=== PATIENT | female | born 1940 ===

== ENCOUNTER 2020-03-23 14:07 | Emergency (ER) | payer MEDICARE, MEDICAID ==
[2020-03-23] MEDS ORDERED: Sodium Chloride 0.9% 10 ML Syringe FLUSH PRN (14:08)
--- NOTE | 2020-03-23 14:38 | CR ---
PROCEDURE INFORMATION: Exam: XR Chest, 1 View Exam date and time: 03/23/2020 2:27 PM Age: 79 years old Clinical indication: Chest pain; Type not specified TECHNIQUE: Imaging protocol: XR of the chest Views: 1 view. COMPARISON: No relevant prior studies available. FINDINGS: Lungs: Horizontal the linear density in the lingular region likely subsegmental atelectasis. The lungs are otherwise clear. Pleural space: Normal. Heart/Mediastinum: Normal heart and cardiomediastinal silhouette. Vasculature: Normal pulmonary vessel caliber. Normal aorta. Bones/joints: The bones are intact. IMPRESSION: No acute disease or suspicious finding.
[2020-03-23 14:48] LABS: ANION GAP 11.6 mEq/L (7-13); CHLORIDE,CL 103 mmol/L (98-107); SODIUM,NA 139 mmol/L (136-145)
--- NOTE | 2020-03-23 15:38 | EDM.PDOC ---
ED HPI GENERAL MEDICAL PROBLEM - General Chief Complaint: Chest Pain Stated Complaint: INCOMING Time Seen by Provider: 03/23/20 14:15 Source of Information: Reports: Patient, EMS, RN, RN Notes Reviewed History Limitations: Reports: No Limitations - History of Present Illness INITIAL COMMENTS - FREE TEXT/NARRATIVE: Patient presents to ED via EMS with complaints of CP. The patient states the pain began suddenly this morning while she was drinking her morning coffee. She describes the pain as sharp pressure in her mid chest which radiates up into her left jaw/neck. She reports this pain was mildly alleviated with Nitro. She does report palpitations and states "It feels as if my heart is pumping out of my chest." She denies shortness of breath, cough, chest tightness, or recent illness. She does report experiencing similar pain before, which was alleviated with Nitro. She denies any aggravating factors which worsen the pain. She denies any dysuria, hematuria, melena, changes to bowel or bladder, or changes to diet. Neck Pain Score (Numeric/FACES): 7 - Related Data Allergies Allergy/AdvReac Type Severity Reaction Status Date / Time codeine Allergy Abdominal Verified 03/23/20 14:14 Pain Home Meds: Home Meds Cyclobenzaprine [Flexeril] 5 mg PO BID 03/23/20 [History] Escitalopram [Lexapro] 20 mg PO DAILY 03/23/20 [History] Folic Acid 1 mg PO DAILY 03/23/20 [History] Insulin Degludec [Tresiba] 200 unit SQ ASDIRECTED 03/23/20 [History] Potassium Chloride 20 meq PO DAILY 03/23/20 [History] Pramipexole [Mirapex] 0.5 mg PO BID 03/23/20 [History] metFORMIN [Glucophage XR] 1,000 mg PO DAILY 03/23/20 [History] Past Medical History HEENT History: Reports: None Cardiovascular History: Reports: Heart Murmur, Hypertension Respiratory History: Reports: None Gastrointestinal History: Reports: GERD Genitourinary History: Reports: None FLY RAISER LOCKSTITCH History: Reports: Other (See Below) Other FLY RAISER LOCKSTITCH History: hysterectomy Musculoskeletal History: Reports: Arthritis Neurological History: Reports: None Psychiatric History: Reports: None Endocrine/Metabolic History: Reports: Diabetes, Type II Hematologic History: Reports: None Immunologic History: Reports: None Oncologic (Cancer) History: Reports: None Dermatologic History: Reports: None - Infectious Disease History Infectious Disease History: Reports: None - Past Surgical History Head Surgeries/Procedures: Reports: None GI Surgical History: Reports: Cholecystectomy Social & Family History - Family History Family Medical History: Noncontributory - Tobacco Use Smoking Status *Q: Never Smoker Second Hand Smoke Exposure: No - Recreational Drug Use Recreational Drug Use: No ED ROS GENERAL - Review of Systems Review Of Systems: Comprehensive ROS is negative, except as noted in HPI. ED EXAM, GENERAL - Physical Exam Exam: See Below Exam Limited By: No Limitations General Appearance: Alert, No Apparent Distress Throat/Mouth: Normal Inspection, Normal Voice, No Airway Compromise Head: Atraumatic, Normocephalic Neck: Normal Inspection, Supple, Non-Tender, Full Range of Motion Respiratory/Chest: No Respiratory Distress, Lungs Clear, Normal Breath Sounds, No Accessory Muscle Use, Chest Non-Tender Cardiovascular: Normal Peripheral Pulses, Regular Rate, Rhythm, No Edema, No Gallop, Systolic Murmur (2/6, greatest over pulmonic area; Does not radiate to carotids) GI/Abdominal: Normal Bowel Sounds, Soft, Non-Tender, No Distention, No Mass (Female) Exam: Deferred Rectal (Female) Exam: Deferred Back Exam: Normal Inspection. No: CVA Tenderness (L), CVA Tenderness (R) Extremities: Non-Tender, Normal Capillary Refill, Pedal Edema (+1 to bilateral lower extremities) Neurological: Alert, Oriented, CN II-XII Intact, Normal Cognition, No Motor/Sensory Deficits Psychiatric: Normal Affect, Normal Mood Skin Exam: Warm, Dry, Intact, Normal Color, No Rash EKG INTERPRETATION EKG Date: 03/23/20 Time: 14:14 Rhythm: NSR Rate (Beats/Min): 66 Buckner: LAD-Left Buckner Deviation P-Wave: Present QRS: Normal ST-T: Normal QT: Normal Comparison: NA - No Prior EKG EKG Interpretation Comments: Normal EKG. No acute ischemic changes. Course - Vital Signs Last Recorded V/S: Last Vital Signs Temp 97.6 F 03/23/20 19:20 Pulse 70 03/23/20 19:20 Resp 16 03/23/20 19: BP 141/50 H 03/23/20 19: Pulse Ox 99 03/23/20 19:20 - Orders/Labs/Meds Orders: Active Orders 24 hr Category Date Time Status EKG 12 Lead [EKG Documentation Completion] [] ROUTINE Care 03/23/20 18:00 Active EKG 12 Lead [EKG Documentation Completion] [RC] STAT Care 03/23/20 14:08 Active Peripheral IV Care [RC] . DIRECTED Care 03/23/20 14:08 Active 2 Gram Sodium Diet [DIET] Diet 03/23/20 Dinner Active Sodium Chloride 0.9% [Saline Flush] Med 03/23/20 14:08 Active 10 ml FLUSH ASDIRECTED PRN Peripheral IV Insertion Adult [OM.PC] Stat Oth 03/23/20 14:08 Ordered Medication Orders Sodium Chloride (Saline Flush) 10 ml FLUSH ASDIRECTED PRN PRN Reason: Keep Vein Open Labs: Laboratory Tests 03/23/20 03/23/20 03/23/20 Range/Units 14:20 14:20 14:20 WBC 8.6 (5.0-10.0) 10^3/uL RBC 3.69 L (4.2-5.4) 10^6/uL Hgb 10.7 L (12.0-16.0) g/dL Hct 32.6 L (37.0-47.0) % MCV 88.3 (80-100) fL MCH 29.0 (27.0-34.0) pg MCHC 32.8 L (33.0-35.0) g/dL Plt Count 282 (150-450) 10^3/uL Neut % (Auto) 62.0 (42.2-75.2) % Lymph % (Auto) 28.3 (20.5-50.1) % Cherry % (Auto) 6.4 (2-8) % Eos % (Auto) 2.8 (1.0-3.0) % Baso % (Auto) 0.5 (0.0-1.0) % PT 10.1 (9.0-12.0) SEC INR 1.1 (0.9-1.2) APTT 25.0 (22.0-34.0) SEC Sodium 139 (136-145) mmol/L Potassium 3.6 (3.5-5.1) mmol/L Chloride 103 (98-107) mmol/L Carbon Dioxide 28 (21-32) mmol/L Anion Gap 11.6 (7-13) mEq/L BUN 23 H (7-18) mg/dL Creatinine 0.83 (0.55-1.02) mg/dL Est Cr Clr Drug Dosing 44.89 mL/min Estimated GFR (MDRD) > 60 BUN/Creatinine Ratio 27.7 (No establ ref range) Glucose 121 H (74-99) mg/dL Calcium 8.6 (8.5-10.1) mg/dL Total Bilirubin 0.3 (0.2-1.0) mg/dL AST 19 (15-37) U/L ALT 20 (14-59) U/L Alkaline Phosphatase 160 H (46-116) U/L Troponin I < 0.017 (0.000-0.056) ng/mL B-Natriuretic Peptide 46 (0-100) pg/ml Total Protein 7.4 (6.4-8.2) g/dL Albumin 2.9 L (3.4-5.0) g/dL Globulin 4.5 Albumin/Globulin Ratio 0.64 Lipase 118 (73-393) U/L 03/23/20 Range/Units 18:11 WBC (5.0-10.0) 10^3/uL RBC (4.2-5.4) 10^6/uL Hgb (12.0-16.0) g/dL Hct (37.0-47.0) % MCV (80-100) fL MCH (27.0-34.0) pg MCHC (33.0-35.0) g/dL Plt Count (150-450) 10^3/uL Neut % (Auto) (42.2-75.2) % Lymph % (Auto) (20.5-50.1) % Cherry % (Auto) (2-8) % Eos % (Auto) (1.0-3.0) % Baso % (Auto) (0.0-1.0) % PT (9.0-12.0) SEC INR (0.9-1.2) APTT (22.0-34.0) SEC Sodium (136-145) mmol/L Potassium (3.5-5.1) mmol/L Chloride (98-107) mmol/L Carbon Dioxide (21-32) mmol/L Anion Gap (7-13) mEq/L BUN (7-18) mg/dL Creatinine (0.55-1.02) mg/dL Est Cr Clr Drug Dosing mL/min Estimated GFR (MDRD) BUN/Creatinine Ratio (No establ ref range) Glucose (74-99) mg/dL Calcium (8.5-10.1) mg/dL Total Bilirubin (0.2-1.0) mg/dL AST (15-37) U/L ALT (14-59) U/L Alkaline Phosphatase (46-116) U/L Troponin I < 0.017 (0.000-0.056) ng/mL B-Natriuretic Peptide (0-100) pg/ml Total Protein (6.4-8.2) g/dL Albumin (3.4-5.0) g/dL Globulin Albumin/Globulin Ratio Lipase (73-393) U/L Meds: Medications Generic Name Dose Route Start Last Admin Trade Name Freq PRN Reason Stop Dose Admin Sodium Chloride 10 ml 03/23/20 14:08 Saline Flush FLUSH ASDIRECTED PRN Keep Vein Open Departure - Departure Time of Disposition: 19:24 Disposition: Home, Self-Care 01 Condition: Good Clinical Impression: Atypical chest pain Instructions: Nonspecific Chest Pain, Adult, [id number] Forms: ED Department Discharge Additional Instructions: Continue current medications, as prescribed. Follow up with primary care provider Friday or Friday of next week (03/27/20-03/28/20). Return to ED if chest pain returns or worsens. Sepsis Event Note (ED) - Evaluation Sepsis Screening Result: No Definite Risk - Focused Exam Vital Signs: Vital Signs Temp Pulse Resp BP Pulse Ox 03/23/20 19:20 97.6 F 70 16 141/50 H 99 03/23/20 16:31 97.0 F 69 18 152/43 H 100 03/23/20 14:12 96.9 F 66 16 174/60 H 99 - My Orders Last 24 Hours: My Active Orders 03/23/20 18:00 EKG 12 Lead [EKG Documentation Completion] [RC] ROUTINE - Assessment/Plan Last 24 Hours: My Active Orders 03/23/20 18:00 EKG 12 Lead [EKG Documentation Completion] [RC] ROUTINE
== END 2020-03-23 19:37 | disposition home or self-care (01) ==
LOC: DL.ED 14:07
DX: R07.89 Other chest pain (principal); I10 Essential (primary) hypertension; E11.9 Type 2 diabetes mellitus without complications; Z88.5 Allergy status to narcotic agent; Z79.4 Long term (current) use of insulin; Z79.899 Other long term (current) drug therapy
CPT/HCPCS: 36415; 71045; 80053; 83690; 83880; 84484; 85025; 85610; 85730; 93005; 93010; 99284; 99285-25

== ENCOUNTER 2020-10-04 10:46 | Emergency (ER) | payer MEDICARE, MEDICAID ==
[2020-10-04 11:34] LABS: ANION GAP 12.8 mEq/L (7-13); CHLORIDE,CL 101 mmol/L (98-107); SODIUM,NA 139 mmol/L (136-145)
[2020-10-04 12:07] LABS: CORONAVIRUS COVID-19 NAA NEGATIVE (NEGATIVE)
[2020-10-04] MEDS ORDERED: Sodium Chloride 0.9% 1,000 ML IV ONE (12:08)
[2020-10-04] MEDS ORDERED: Iopamidol 612 MG/ML 100 ML Bottle IVPUSH ONE (12:35)
--- NOTE | 2020-10-04 12:54 | CT ---
PROCEDURE INFORMATION: Exam: CT Abdomen And Pelvis With Contrast Exam date and time: 10/04/2020 12:20 PM Age: 80 years old Clinical indication: Other: Abdominal pain to llq; HX of diverticulosis; Prior surgery; Surgery date: 6+ months; Surgery type: Gallbladder TECHNIQUE: Imaging protocol: Computed tomography of the abdomen and pelvis with contrast. Radiation optimization: All CT scans at this facility use at least one of these dose optimization techniques: automated exposure control; mA and/or kV adjustment per patient size (includes targeted exams where dose is matched to clinical indication); or iterative reconstruction. Contrast material: ISOVUE 300; Contrast volume: 98 ml; Contrast route: INTRAVENOUS (IV); COMPARISON: CR Abdomen 2V AP Flat Upright 06/07/2020 1:09 PM FINDINGS: Liver: Normal. No mass. Gallbladder and bile ducts: Status post cholecystectomy. Pancreas: Normal. No ductal dilation. Spleen: Normal. No splenomegaly. Adrenal glands: Normal. No mass. Kidneys and ureters: Normal. No hydronephrosis. Stomach and bowel: Extensive sigmoid diverticulosis with associated muscular hypertrophy. No CT evidence of diverticulitis. No evidence for obstruction Appendix: No evidence of appendicitis. Intraperitoneal space: Unremarkable. No free air. No significant fluid collection. Vasculature: Unremarkable. No abdominal aortic aneurysm. Lymph nodes: Unremarkable. No enlarged lymph nodes. Urinary bladder: Unremarkable as visualized. Reproductive: Status post hysterectomy Bones/joints: Unremarkable. No acute fracture. Soft tissues: Coarse calcifications within the left breast. IMPRESSION: 1. Extensive sigmoid diverticulosis with associated muscular hypertrophy. 2. No CT evidence of diverticulitis.
--- NOTE | 2020-10-04 13:01 | EDM.PDOC ---
ED HPI GENERAL MEDICAL PROBLEM - General Chief Complaint: General Time Seen by Provider: 10/04/20 11:10 Source of Information: Reports: Patient, EMS, RN, RN Notes Reviewed History Limitations: Reports: No Limitations - History of Present Illness INITIAL COMMENTS - FREE TEXT/NARRATIVE: Patient presents to the ED via EMS for complaints of pre-syncope while exiting her shower this morning. The patient attests to tunnel vision during the episode which did not improve until she sat down; she denies loss of consciousness and did not fall. She reports a history of hypertension, DMII, diverticulosis, and a diagnosis polymyalgia rheumatica within the past month for which she has been prescribed prednisone 15mg daily. She is currently on an additional prednisone burst of 10mg for one week for increase in joint aches. She denies recent illness, fever, shaking chills, chest pain, palpitations, nausea, vomiting, constipations, dysuria, hematuria, melena, or hematochezia. The patient does state she experienced significant LLQ abdominal pain with diarrhea yesterday; the diarrhea has since stopped, while the pain persists. She has not taken any medications for the diarrhea or abdominal pain. Giuseppe tionally, she reports she has been a close contact of a person with an active COVID infection. She has received two doses of a COVID vaccine this year. The patient denies tobacco, alcohol, or recreational drug use. Occipital Headache Pain Score (Numeric/FACES): 3 - Related Data Allergies Allergy/AdvReac Type Severity Reaction Status Date / Time codeine Allergy Abdominal Verified 10/04/20 11:01 Pain Home Meds: Home Meds Escitalopram [Lexapro] 20 mg PO BEDTIME 10/04/20 [History] Folic Acid 1 mg PO DAILY 10/04/20 [History] Insulin Degludec [Tresiba] 28 unit SQ DAILY 10/04/20 [History] Losartan [Cozaar] 50 mg PO DAILY 10/04/20 [History] Potassium Chloride 20 meq PO DAILY 10/04/20 [History] Pramipexole [Mirapex] 0.5 mg PO BID 10/04/20 [History] Semaglutide [Ozempic] 1 mg SQ WEEKLY 10/04/20 [History] metFORMIN HCl [Metformin HCl] 1,000 mg PO BID 10/04/20 [History] predniSONE 15 mg PO DAILY 10/04/20 [History] predniSONE [Prednisone] 10 mg PO DAILY 10/04/20 [History] risperiDONE [Risperidone] 1 mg PO ASDIRECTED 10/04/20 [History] risperiDONE [Risperidone] 1 mg PO ASDIRECTED 10/04/20 [History] Past Medical History HEENT History: Reports: None Cardiovascular History: Reports: Heart Murmur, Hypertension, Other (See Below) Other Cardiovascular History: Near syncopal episodes hx Respiratory History: Reports: None Gastrointestinal History: Reports: GERD Genitourinary History: Reports: None REGULATORY ASSOCIATE History: Reports: Other (See Below) Other REGULATORY ASSOCIATE History: hysterectomy Musculoskeletal History: Reports: Arthritis, Other (See Below) Other Musculoskeletal History: Myalgia Neurological History: Reports: None Psychiatric History: Reports: None Endocrine/Metabolic History: Reports: Diabetes, Type II Hematologic History: Reports: None Immunologic History: Reports: None Oncologic (Cancer) History: Reports: None Dermatologic History: Reports: None - Infectious Disease History Infectious Disease History: Reports: None - Past Surgical History Head Surgeries/Procedures: Reports: None GI Surgical History: Reports: Cholecystectomy Social & Family History - Family History Family Medical History: No Pertinent Family History - Tobacco Use Tobacco Use Status *Q: Never Tobacco User Second Hand Smoke Exposure: No - Caffeine Use Caffeine Use: Reports: None - Recreational Drug Use Recreational Drug Use: No ED ROS GENERAL - Review of Systems Review Of Systems: Comprehensive ROS is negative, except as noted in HPI. ED EXAM, GENERAL - Physical Exam Exam: See Below Exam Limited By: No Limitations General Appearance: Alert, No Apparent Distress Eye Exam: Bilateral Eye: EOMI, Normal Inspection, PERRL (3mm) Throat/Mouth: Normal Inspection, Normal Voice, No Airway Compromise Head: Atraumatic, Normocephalic Neck: Normal Inspection, Supple, Non-Tender, Full Range of Motion Respiratory/Chest: No Respiratory Distress, Lungs Clear, Normal Breath Sounds, No Accessory Muscle Use, Chest Non-Tender Cardiovascular: Normal Peripheral Pulses, Regular Rate, Rhythm, No Edema, No Gallop, No JVD, No Rub, Systolic Murmur (3/6, loudest over the aortic area; No radiation into carotids) Peripheral Pulses: 2+: Radial (L), Radial (R) GI/Abdominal: Soft, No Distention, No Mass, Pelvis Stable, Tender (To palpation of LLQ ), Abnormal Bowel Sounds (Hyperactive bowel sounds). No: Guarding, Rigid, Rebound (Female) Exam: Deferred Rectal (Female) Exam: Deferred Back Exam: Normal Inspection, Full Range of Motion. No: CVA Tenderness (L), CVA Tenderness (R) Extremities: Normal Inspection, Normal Range of Motion, Non-Tender, Normal Capillary Refill, No Pedal Edema Neurological: Alert, Oriented, CN II-XII Intact, Normal Cognition, Normal Gait, No Motor/Sensory Deficits Psychiatric: Normal Affect, Normal Mood Skin Exam: Warm, Dry, Intact, Normal Color, No Rash. No: Ecchymosis, Erythema, Jaundice, Mottled, Pallor, Petechiae #1 Interpretation EKG Date: 10/04/20 Time: 11:00 Rhythm: NSR Rate (Beats/Min): 64 [place]: LAD-Left [place] Deviation P-Wave: Present QRS: Normal ST-T: Normal QT: Normal RI/PQ Interval: 0.164 Comparison: No Change EKG Interpretation Comments: NSR; No evidence of myocardial ischemia Course - Vital Signs Last Recorded V/S: Last Vital Signs Temp 97.3 F 10/04/20 11:01 Pulse 72 10/04/20 11:01 Resp 16 10/04/20 11:01 BP 127/95 H 10/04/20 11:01 Pulse Ox 100 10/04/20 11:01 - Orders/Labs/Meds Orders: Active Orders 24 hr Category Date Time Status CULTURE URINE [RM] Stat Lab 10/04/20 12:15 Received Labs: Laboratory Tests 10/04/20 10/04/20 10/04/20 Range/Units 11:05 11:05 11:05 WBC 14.7 H (5.0-10.0) 10^3/uL RBC 3.62 L (4.2-5.4) 10^6/uL Hgb 10.2 L (12.0-16.0) g/dL Hct 31.5 L (37.0-47.0) % MCV 87.0 (80-100) fL MCH 28.2 (27.0-34.0) pg MCHC 32.4 L (33.0-35.0) g/dL Plt Count 275 (150-450) 10^3/uL Neut % (Auto) 80.7 H (42.2-75.2) % Lymph % (Auto) 11.2 L (20.5-50.1) % [place] % (Auto) 6.7 (2-8) % Eos % (Auto) 1.2 (1.0-3.0) % Baso % (Auto) 0.2 (0.0-1.0) % Sodium 139 (136-145) mmol/L Potassium 3.8 (3.5-5.1) mmol/L Chloride 101 (98-107) mmol/L Carbon Dioxide 29 (21-32) mmol/L Anion Gap 12.8 (7-13) mEq/L BUN 20 H (7-18) mg/dL Creatinine 1.20 H (0.55-1.02) mg/dL Est Cr Clr Drug Dosing 30.56 mL/min Estimated GFR (MDRD) 43 BUN/Creatinine Ratio 16.7 (No establ ref range) Glucose 231 H (70-99) mg/dL Lactic Acid 2.0 (0.4-2.0) mmol/L Calcium 8.6 (8.5-10.1) mg/dL Magnesium 1.8 (1.8-2.4) mg/dL Total Bilirubin 0.3 (0.2-1.0) mg/dL AST 10 L (15-37) U/L ALT 20 (14-59) U/L Alkaline Phosphatase 97 (46-116) U/L Troponin I < 0.017 (0.000-0.056) ng/mL C-Reactive Protein 0.2 (0.0-0.9) mg/dL B-Natriuretic Peptide 62 (0-100) pg/ml Total Protein 6.7 (6.4-8.2) g/dL Albumin 2.7 L (3.4-5.0) g/dL Globulin 4.0 Albumin/Globulin Ratio 0.68 Urine Color (YELLOW) Urine Appearance (CLEAR) Urine pH (5.0-9.0) Ur Specific [place] (1.005-1.030) Urine Protein (NEGATIVE) Urine Glucose (UA) (NEGATIVE) Urine Ketones (NEGATIVE) Urine Occult Blood (NEGATIVE) Urine Nitrite (NEGATIVE) Urine Bilirubin (NEGATIVE) Urine Urobilinogen (0.2-1.0) mg/dL Ur Leukocyte Esterase (NEGATIVE) U Hyaline Cast (Auto) Urine RBC /HPF Urine WBC (0-5/HPF) /HPF Ur Epithelial Cells (NOT SEEN) /HPF Amorphous Sediment (NOT SEEN) /HPF Urine Bacteria (0-FEW/HPF) /HPF Granular Casts (Auto) Urine Mucus (NOT SEEN) /LPF Urine Opiates Screen (NEGATIVE) Ur Oxycodone Screen (NEGATIVE) Urine Methadone Screen (NEGATIVE) Ur Barbiturates Screen (NEGATIVE) U Tricyclic Antidepress (NEGATIVE) Ur Phencyclidine Scrn (NEGATIVE) Ur Amphetamine Screen (NEGATIVE) U Methamphetamines Scrn (NEGATIVE) Urine MDMA Screen (NEGATIVE) U Benzodiazepines Scrn (NEGATIVE) Urine Cocaine Screen (NEGATIVE) U Marijuana (THC) Screen (NEGATIVE) Ethyl Alcohol < 3 (0) mg/dL Influenza Type A RNA (NEGATIVE) Influenza Type B RNA (NEGATIVE) SARS-CoV-2 RNA (YUMIKO) (NEGATIVE) 10/04/20 10/04/20 10/04/20 Range/Units 11:10 12:15 12:15 WBC (5.0-10.0) 10^3/uL RBC (4.2-5.4) 10^6/uL Hgb (12.0-16.0) g/dL Hct (37.0-47.0) % MCV (80-100) fL MCH (27.0-34.0) pg MCHC (33.0-35.0) g/dL Plt Count (150-450) 10^3/uL Neut % (Auto) (42.2-75.2) % Lymph % (Auto) (20.5-50.1) % [place] % (Auto) (2-8) % Eos % (Auto) (1.0-3.0) % Baso % (Auto) (0.0-1.0) % Sodium (136-145) mmol/L Potassium (3.5-5.1) mmol/L Chloride (98-107) mmol/L Carbon Dioxide (21-32) mmol/L Anion Gap (7-13) mEq/L BUN (7-18) mg/dL Creatinine (0.55-1.02) mg/dL Est Cr Clr Drug Dosing mL/min Estimated GFR (MDRD) BUN/Creatinine Ratio (No establ ref range) Glucose (70-99) mg/dL Lactic Acid (0.4-2.0) mmol/L Calcium (8.5-10.1) mg/dL Magnesium (1.8-2.4) mg/dL Total Bilirubin (0.2-1.0) mg/dL AST (15-37) U/L ALT (14-59) U/L Alkaline Phosphatase (46-116) U/L Troponin I (0.000-0.056) ng/mL C-Reactive Protein (0.0-0.9) mg/dL B-Natriuretic Peptide (0-100) pg/ml Total Protein (6.4-8.2) g/dL Albumin (3.4-5.0) g/dL Globulin Albumin/Globulin Ratio Urine Color Dark yellow (YELLOW) Urine Appearance Clear (CLEAR) Urine pH 5.5 (5.0-9.0) Ur Specific [place] 1.025 (1.005-1.030) Urine Protein 30 H (NEGATIVE) Urine Glucose (UA) Negative (NEGATIVE) Urine Ketones Trace H (NEGATIVE) Urine Occult Blood Negative (NEGATIVE) Urine Nitrite Negative (NEGATIVE) Urine Bilirubin Negative (NEGATIVE) Urine Urobilinogen 0.2 (0.2-1.0) mg/dL Ur Leukocyte Esterase Trace H (NEGATIVE) U Hyaline Cast (Auto) Few Urine RBC Not seen /HPF Urine WBC 0-5 (0-5/HPF) /HPF Ur Epithelial Cells Few (NOT SEEN) /HPF Amorphous Sediment Not seen (NOT SEEN) /HPF Urine Bacteria Few (0-FEW/HPF) /HPF Granular Casts (Auto) Few Urine Mucus Many H (NOT SEEN) /LPF Urine Opiates Screen Negative (NEGATIVE) Ur Oxycodone Screen Negative (NEGATIVE) Urine Methadone Screen Negative (NEGATIVE) Ur Barbiturates Screen Negative (NEGATIVE) U Tricyclic Antidepress Negative (NEGATIVE) Ur Phencyclidine Scrn Negative (NEGATIVE) Ur Amphetamine Screen Negative (NEGATIVE) U Methamphetamines Scrn Negative (NEGATIVE) Urine MDMA Screen Negative (NEGATIVE) U Benzodiazepines Scrn Negative (NEGATIVE) Urine Cocaine Screen Negative (NEGATIVE) U Marijuana (THC) Screen Negative (NEGATIVE) Ethyl Alcohol (0) mg/dL Influenza Type A RNA Negative (NEGATIVE) Influenza Type B RNA Negative (NEGATIVE) SARS-CoV-2 RNA (YUMIKO) Negative (NEGATIVE) Meds: Medications Discontinued Medications Generic Name Dose Route Start Last Admin Trade Name Freq PRN Reason Stop Dose Admin Sodium Chloride 1,000 mls @ 999 mls/hr 10/04/20 12:08 10/04/20 14:16 Normal Saline IV 10/04/20 13:08 Infused .BOLUS ONE Infusion Iopamidol 100 ml 10/04/20 12:35 10/04/20 12:36 Iopamidol 612 Mg/Ml 100 Ml Bottle IVPUSH 10/04/20 12:36 100 ml ONETIME ONE Administration - Radiology Interpretation Free Text/Narrative:: [facility] Final Radiology Report Call: [phone] assistance Online chat: [email or web address] Co Name: MARSHAL MARTINEZ Age: 80Years F Date: 10/04/2020 SSN: -- : [id number] Study: CT ABDOMEN PELVIS W CONT Requesting Physician: Noemi Shoemaker Images: [phone] Addl Studies: Provided Clinical History: Abdominal pain to LLQ; Hx of diverticulosis Contrast: With Contrast Medium: Isovue 300 Contrast Amount: 98 mL Contrast Method: Intravenous (IV) Page 1 of 2 PROCEDURE INFORMATION: Exam: CT Abdomen And Pelvis With Contrast Exam date and time: 10/04/2020 12:20 PM Age: 80 years old Clinical indication: Other: Abdominal pain to llq; HX of diverticulosis; Prior surgery; Surgery date: 6+ months; Surgery type: Gallbladder TECHNIQUE: Imaging protocol: Computed tomography of the abdomen and pelvis with contrast. Radiation optimization: All CT scans at this facility use at least one of these dose optimization techniques: automated exposure control; mA and/or kV adjustment per patient size (includes targeted exams where dose is matched to clinical indication); or iterative reconstruction. Contrast material: ISOVUE 300; Contrast volume: 98 ml; Contrast route: INTRAVENOUS (IV); COMPARISON: CR Abdomen 2V AP Flat Upright 06/07/2020 1:09 PM FINDINGS: Liver: Normal. No mass. Gallbladder and bile ducts: Status post cholecystectomy. Pancreas: Normal. No ductal dilation. Spleen: Normal. No splenomegaly. Adrenal glands: Normal. No mass. Kidneys and ureters: Normal. No hydronephrosis. Stomach and bowel: Extensive sigmoid diverticulosis with associated muscular hypertrophy. No CT evidence of diverticulitis. No evidence for obstruction Appendix: No evidence of appendicitis. Intraperitoneal space: Unremarkable. No free air. No significant fluid collection. Vasculature: Unremarkable. No abdominal aortic aneurysm. Lymph nodes: Unremarkable. No enlarged lymph nodes. Urinary bladder: Unremarkable as visualized. Reproductive: Status post hysterectomy Bones/joints: Unremarkable. No acute fracture. Soft tissues: Coarse calcifications within the left breast. IMPRESSION: 1. Extensive sigmoid diverticulosis with associated muscular hypertrophy. 2. No CT evidence of diverticulitis. Thank you for allowing us to participate in the care of your patient. Dictated and Authenticated by: Walter Cooley MD 10/04/2020 12:54 PM Central Time ([place] & [place]) - Re-Assessments/Exams Free Text/Narrative Re-Assessment/Exam: 10/04/20 WBC elevated at 14 with left shift present; given persistent abdominal pain and history of diverticulosis with obtain CT abdomen/pelvis to r/o diverticulitis. COVID test negative. EKG revealed NSR with no evidence of ischemia. Troponin WNL. Normocytic hypochromic anemia noted with Hgb at 10.2; this appears stable for patient via previous labs. Electrolytes and liver function appropriate via CMP, however kidney function is slightly reduced. Creatinine 1.2, BUN 20, and GFR 43; will administer LR 1L bolus following contrast. Patient counseled to refrain from taking metformin for 48 hours following contrast. Hyperglycemia noted; likely related to steroid use as patient states she has had difficulty with elevated blood sugar since starting prednisone. Toxicology screen and ETOH negative. UA unremarkable for acute processes. CT abdomen/pelvis negative for acute processes; extensive diverticulosis noted throughout the colon. Findings of examination, imaging, and blood work reviewed with patient. Discussed etiologies of pre-syncope and red flag signs and symptoms which would warrant reevaluation. Patient instructed to follow up with primary care provider in 3-5 days. Patient verbalized understanding and agreement with the plan of care. Departure - Departure Time of Disposition: 13:19 Disposition: Home, Self-Care 01 Condition: Good Clinical Impression: Normocytic hypochromic anemia, Diverticulosis of colon, Hx of polymyalgia rheumatica, Chronic steroid use, Pre-syncope, Steroid-induced hyperglycemia DMII (diabetes mellitus, type 2) Qualifiers: Diabetes mellitus manager terminal insulin use: with manager terminal use Diabetes mellitus complication status: without complication Qualified Code(s): E11.9 - Type 2 diabetes mellitus without complications - Discharge Information *PRESCRIPTION DRUG MONITORING PROGRAM REVIEWED*: Not Applicable *COPY OF PRESCRIPTION DRUG MONITORING REPORT IN PATIENT RHODA: Not Applicable Instructions: Near-Syncope, [id number] Forms: ED Department Discharge Additional Instructions: 1.) Do not take your Metformin until Friday as you received IV contrast today; you may continue taking your other antidiabetic medications, including insulin. 2.) Drink plenty of water to flush out your kidneys and to stay hydrated. 3.) Follow up with your primary care provider regarding today's visit in 3-5 days, or sooner should symptoms worsen/return. Sepsis Event Note (ED) - Evaluation Sepsis Screening Result: No Definite Risk - Focused Exam Vital Signs: Vital Signs Temp Pulse Resp BP Pulse Ox 10/04/20 11:01 97.3 F 72 16 127/95 H 100 - My Orders Last 24 Hours: My Active Orders 10/04/20 12:15 CULTURE URINE [RM] Stat - Assessment/Plan Last 24 Hours: My Active Orders 10/04/20 12:15 CULTURE URINE [RM] Stat
== END 2020-10-04 14:05 | disposition home or self-care (01) ==
LOC: DL.ED 10:46
DX: E09.65 Drug or chemical induced diabetes mellitus with hyperglycemia (principal); D50.9 Iron deficiency anemia, unspecified; K57.30 Diverticulosis of large intestine without perforation or abscess without bleeding; F19.90 Other psychoactive substance use, unspecified, uncomplicated; T38.0X5A Adverse effect of glucocorticoids and synthetic analogues, initial encounter; I10 Essential (primary) hypertension; Z79.4 Long term (current) use of insulin; Z86.2 Personal history of diseases of the blood and blood-forming organs and certain disorders involving the immune mechanism; Z88.5 Allergy status to narcotic agent; Z20.822 Contact with and (suspected) exposure to COVID-19; Z20.828 Contact with and (suspected) exposure to other viral communicable diseases
CPT/HCPCS: 0240U; 36415; 74177; 80053; 80305; 80307; 81001; 83605; 83735; 83880; 84484; 85025; 86140; 87086; 93005; 99284; J7030; Q9967

== ENCOUNTER 2020-11-13 11:00 | Emergency (ER) | payer MEDICARE, MEDICAID ==
[2020-11-13] MEDS ORDERED: Sodium Chloride 0.9% 10 ML Syringe FLUSH PRN (11:12)
[2020-11-13] MEDS ORDERED: diphenhydrAMINE 50 MG/ML SDV IVPUSH ONE (11:14)
[2020-11-13] MEDS ORDERED: Ketorolac 30 MG/ML SDV IVPUSH ONE (11:15)
[2020-11-13] MEDS ORDERED: Sodium Chloride 0.9% 500 ML IV SCH (11:15)
[2020-11-13] MEDS ORDERED: Metoclopramide 10 MG/2 ML SDV IVPUSH ONE (11:15)
--- NOTE | 2020-11-13 11:45 | CT ---
PROCEDURE INFORMATION: Exam: CT Head Without Contrast Exam date and time: 11/13/2020 11:24 AM Age: 80 years old Clinical indication: Pain; Headache; Additional info: Severe RT sided headache w/vomiting TECHNIQUE: Imaging protocol: Computed tomography of the head without contrast. Radiation optimization: All CT scans at this facility use at least one of these dose optimization techniques: automated exposure control; mA and/or kV adjustment per patient size (includes targeted exams where dose is matched to clinical indication); or iterative reconstruction. COMPARISON: No relevant prior studies available. FINDINGS: Brain: A mild amount of decreased attenuation is present within the periventricular white matter. Finding is nonspecific but most often seen in chronic small-vessel ischemic change. No acute hemorrhage or infarct identified. There is no intracranial mass, mass effect, midline shift or edema. There are no abnormal extra-axial fluid collections. Cerebral ventricles: The ventricles and sulci are mildly prominent consistent with global volume loss/atrophy. Paranasal sinuses: Visualized sinuses are unremarkable. No fluid levels. Mastoid air cells: Visualized mastoid air cells are well aerated. Bones/joints: Unremarkable. No acute fracture. Soft tissues: Unremarkable. IMPRESSION: Mild atrophy and nonspecific chronic white matter change. No acute intracranial abnormality.
[2020-11-13 11:54] LABS: ANION GAP 12.3 mEq/L (7-13)
[2020-11-13] MEDS ORDERED: Insulin Regular, Human 100 Units/ML 3 ML Vial IV ONE (12:13)
[2020-11-13] MEDS ORDERED: Sodium Chloride 0.9% 1,000 ML IV SCH (12:15)
--- NOTE | 2020-11-13 13:57 | EDM.PDOC ---
"Scribed by Naya De Jesus 11/13/20 1119 for Florin Ca MD ED HPI GENERAL MEDICAL PROBLEM - General Chief Complaint: Headache Stated Complaint: [id number] BAD HEADACHE Time Seen by Provider: 11/13/20 11:08 Source of Information: Reports: Patient, Old Records, RN, RN Notes Reviewed History Limitations: Reports: No Limitations - History of Present Illness INITIAL COMMENTS - FREE TEXT/NARRATIVE: Patient presents to ED by POV stating she has had a headache since yesterday as well as vomiting. She had taken Tylenol earlier this morning. Patient states she has a history of migraine headaches and this feels like a typical headache. She usually gets the headaches on the left but this one is on the right and is worse than usual, so she came to the ER. Denies neck pain or stiffness, fever, chills, abdominal pain, or head injury. Onset: Gradual Onset Date: 11/12/20 Duration: Constant Location: Reports: Head Quality: Reports: Ache, Same as Previous Episode Severity: Severe Improves with: Reports: None Worsens with: Reports: None Associated Symptoms: Reports: No Other Symptoms Headache Pain Score (Numeric/FACES): 8 - Related Data Allergies Allergy/AdvReac Type Severity Reaction Status Date / Time codeine Allergy Abdominal Verified 11/13/20 11:30 Pain Home Meds: Home Meds Escitalopram [Lexapro] 20 mg PO BEDTIME 10/04/20 [History] Folic Acid 1 mg PO DAILY 10/04/20 [History] Insulin Degludec [Tresiba] 28 unit SQ DAILY 10/04/20 [History] Losartan [Cozaar] 50 mg PO DAILY 10/04/20 [History] Potassium Chloride 20 meq PO DAILY 10/04/20 [History] Pramipexole [Mirapex] 0.5 mg PO BID 10/04/20 [History] Semaglutide [Ozempic] 1 mg SQ WEEKLY 10/04/20 [History] metFORMIN HCl [Metformin HCl] 1,000 mg PO BID 10/04/20 [History] predniSONE 15 mg PO DAILY 10/04/20 [History] predniSONE [Prednisone] 10 mg PO DAILY 10/04/20 [History] risperiDONE [Risperidone] 1 mg PO ASDIRECTED 10/04/20 [History] risperiDONE [Risperidone] 1 mg PO ASDIRECTED 10/04/20 [History] Past Medical History HEENT History: Reports: None Cardiovascular History: Reports: Heart Murmur, Hypertension, Other (See Below) Other Cardiovascular History: Near syncopal episodes hx Respiratory History: Reports: None Gastrointestinal History: Reports: GERD Genitourinary History: Reports: None BROOM BUILDER History: Reports: Other (See Below) Other BROOM BUILDER History: hysterectomy Musculoskeletal History: Reports: Arthritis, Other (See Below) Other Musculoskeletal History: Myalgia Neurological History: Reports: Migraines Psychiatric History: Reports: None Endocrine/Metabolic History: Reports: Diabetes, Type II Hematologic History: Reports: None Immunologic History: Reports: None Oncologic (Cancer) History: Reports: None Dermatologic History: Reports: None - Infectious Disease History Infectious Disease History: Reports: None - Past Surgical History Head Surgeries/Procedures: Reports: None GI Surgical History: Reports: Cholecystectomy Social & Family History - Family History Family Medical History: No Pertinent Family History - Caffeine Use Caffeine Use: Reports: None - Living Situation & Occupation Living situation: Reports: with Family Occupation: Retired ED ROS GENERAL - Review of Systems Review Of Systems: Comprehensive ROS is negative, except as noted in HPI. - Physical Exam Exam: See Below Exam Limited By: No Limitations General Appearance: Alert, WD/WN, No Apparent Distress Eye Exam: Bilateral Eye: EOMI, Normal Inspection, PERRL, Vision Changes (subjective wavey sanchez lines/bars) Ears: Normal External Exam, Normal Canal, Hearing Grossly Normal, Normal TMs Nose: Normal Inspection, Normal Mucosa, No Blood Throat/Mouth: Normal Inspection, Normal Lips, Normal Teeth, Normal Gums, Normal Oropharynx, Normal Voice, No Airway Compromise Head Exam: Atraumatic, Normocephalic, Other (Nontender overlying right temporal artery) Neck: Normal Inspection, Supple, Non-Tender, Full Range of Motion Respiratory/Chest: No Respiratory Distress, Lungs Clear, Normal Breath Sounds, No Accessory Muscle Use Cardiovascular: Normal Peripheral Pulses, Regular Rate, Rhythm, No Edema GI/Abdominal: Normal Bowel Sounds, Soft, Non-Tender, No Organomegaly, No Distention, No Abnormal Bruit, No Mass Neuro Exam (Abbreviated): Alert, Oriented, CN II-XII Intact, Normal Cognition, Normal Gait, No Motor/Sensory Deficits Back Exam: Normal Inspection Extremities: Normal Inspection Psychiatric: Normal Affect, Normal Mood Skin Exam: Warm, Dry, Intact, Normal Color, No Rash Course - Vital Signs Last Recorded V/S: Last Vital Signs Temp 97.9 F 11/13/20 11:30 Pulse 89 11/13/20 11:30 Resp 20 11/13/20 11:30 BP 151/53 H 11/13/20 11:30 Pulse Ox 96 11/13/20 11:30 - Orders/Labs/Meds Orders: Active Orders 24 hr Category Date Time Status Peripheral IV Care [RC] . DIRECTED Care 11/13/20 11:13 Active Insulin Regular in 0.9 % NACL [Myxredlin in NS 100 UNIT Med 11/13/20 12:15 Active /100 ML] 100 unit in 100 ml IV TITRATE Sodium Chloride 0.9% [Normal Saline] 1,000 ml Med 11/13/20 12:15 Active IV ASDIRECTED Sodium Chloride 0.9% [Normal Saline] 500 ml Med 11/13/20 11:15 Active IV .BOLUS Sodium Chloride 0.9% [Saline Flush] Med 11/13/20 11:12 Active 10 ml FLUSH ASDIRECTED PRN Peripheral IV Insertion Adult [OM.PC] Stat Oth 11/13/20 11:12 Ordered Medication Orders Sodium Chloride (Normal Saline) 500 mls @ 999 mls/hr IV .BOLUS KIKO Last Admin: 11/13/20 11:50 Dose: 999 mls/hr Documented by: LACIE Sodium Chloride (Normal Saline) 1,000 mls @ 150 mls/hr IV ASDIRECTED KIKO Last Admin: 11/13/20 12:30 Dose: 150 mls/hr Documented by: LACIE Insulin Regular in 0.9 % NACL (Myxredlin In Ns 100 Unit/100 Ml) 100 unit in 100 mls @ 8.618 mls/hr IV TITRATE KIKO; Protocol Last Admin: 11/13/20 12:30 Dose: 0.1 units/kg/hr, 8.618 mls/hr Documented by: LACIE Cosigned by: NAYELY Sodium Chloride (Sodium Chloride 0.9% 10 Ml Syringe) 10 ml FLUSH ASDIRECTED PRN PRN Reason: Keep Vein Open Last Admin: 11/13/20 11:51 Dose: 10 ml Documented by: LACIE Labs: Laboratory Tests 0511/13/20 11/13/20 Range/Units 11:20 11:20 11:20 WBC 10.6 H (5.0-10.0) 10^3/uL RBC 4.04 L (4.2-5.4) 10^6/uL Hgb 11.4 L (12.0-16.0) g/dL Hct 34.2 L (37.0-47.0) % MCV 84.7 D (80-100) fL MCH 28.2 (27.0-34.0) pg MCHC 33.3 (33.0-35.0) g/dL Plt Count 263 (150-450) 10^3/uL Neut % (Auto) 76.2 H (42.2-75.2) % Lymph % (Auto) 16.7 L (20.5-50.1) % [place] % (Auto) 6.7 (2-8) % Eos % (Auto) 0.1 L (1.0-3.0) % Baso % (Auto) 0.3 (0.0-1.0) % Sodium 125 L D (136-145) mmol/L Potassium 4.3 (3.5-5.1) mmol/L Chloride 87 L D (98-107) mmol/L Carbon Dioxide 30 (21-32) mmol/L Anion Gap 12.3 (7-13) mEq/L BUN 15 (7-18) mg/dL Creatinine 1.51 H (0.55-1.02) mg/dL Est Cr Clr Drug Dosing 24.28 mL/min Estimated GFR (MDRD) 33 BUN/Creatinine Ratio 9.9 (No establ ref range) Glucose 801 H* (70-99) mg/dL POC Glucose (70-99) mg/dL Calcium 8.3 L (8.5-10.1) mg/dL Total Bilirubin 0.5 (0.2-1.0) mg/dL AST 17 (15-37) U/L ALT 29 (14-59) U/L Alkaline Phosphatase 117 H (46-116) U/L C-Reactive Protein 2.8 H (0.0-0.9) mg/dL Total Protein 7.0 (6.4-8.2) g/dL Albumin 3.0 L (3.4-5.0) g/dL Globulin 4.0 Albumin/Globulin Ratio 0.75 Amylase 26 (25-115) U/L Lipase 174 (73-393) U/L Urine Color (YELLOW) Urine Appearance (CLEAR) Urine pH (5.0-9.0) Ur Specific [place] (1.005-1.030) Urine Protein (NEGATIVE) Urine Glucose (UA) (NEGATIVE) Urine Ketones (NEGATIVE) Urine Occult Blood (NEGATIVE) Urine Nitrite (NEGATIVE) Urine Bilirubin (NEGATIVE) Urine Urobilinogen (0.2-1.0) mg/dL Ur Leukocyte Esterase (NEGATIVE) Urine RBC /HPF Urine WBC (0-5/HPF) /HPF Ur Epithelial Cells (NOT SEEN) /HPF Urine Bacteria (0-FEW/HPF) /HPF Urine Mucus (NOT SEEN) /LPF Ketones Negative 11/13/20 11/13/20 Range/Units 12:40 13:33 WBC (5.0-10.0) 10^3/uL RBC (4.2-5.4) 10^6/uL Hgb (12.0-16.0) g/dL Hct (37.0-47.0) % MCV (80-100) fL MCH (27.0-34.0) pg MCHC (33.0-35.0) g/dL Plt Count (150-450) 10^3/uL Neut % (Auto) (42.2-75.2) % Lymph % (Auto) (20.5-50.1) % [place] % (Auto) (2-8) % Eos % (Auto) (1.0-3.0) % Baso % (Auto) (0.0-1.0) % Sodium (136-145) mmol/L Potassium (3.5-5.1) mmol/L Chloride (98-107) mmol/L Carbon Dioxide (21-32) mmol/L Anion Gap (7-13) mEq/L BUN (7-18) mg/dL Creatinine (0.55-1.02) mg/dL Est Cr Clr Drug Dosing mL/min Estimated GFR (MDRD) BUN/Creatinine Ratio (No establ ref range) Glucose (70-99) mg/dL POC Glucose 419 H* (70-99) mg/dL Calcium (8.5-10.1) mg/dL Total Bilirubin (0.2-1.0) mg/dL AST (15-37) U/L ALT (14-59) U/L Alkaline Phosphatase (46-116) U/L C-Reactive Protein (0.0-0.9) mg/dL Total Protein (6.4-8.2) g/dL Albumin (3.4-5.0) g/dL Globulin Albumin/Globulin Ratio Amylase (25-115) U/L Lipase (73-393) U/L Urine Color Yellow (YELLOW) Urine Appearance Slightly cloudy (CLEAR) Urine pH 6.0 (5.0-9.0) Ur Specific [place] 1.010 (1.005-1.030) Urine Protein 30 H (NEGATIVE) Urine Glucose (UA) >=1000 H (NEGATIVE) Urine Ketones Negative (NEGATIVE) Urine Occult Blood Trace-intact H (NEGATIVE) Urine Nitrite Negative (NEGATIVE) Urine Bilirubin Negative (NEGATIVE) Urine Urobilinogen 0.2 (0.2-1.0) mg/dL Ur Leukocyte Esterase Negative (NEGATIVE) Urine RBC 5-10 H /HPF Urine WBC 0-5 (0-5/HPF) /HPF Ur Epithelial Cells Few (NOT SEEN) /HPF Urine Bacteria Rare (0-FEW/HPF) /HPF Urine Mucus Few H (NOT SEEN) /LPF Ketones Meds: Medications Generic Name Dose Route Start Last Admin Trade Name Freq PRN Reason Stop Dose Admin Sodium Chloride 500 mls @ 999 mls/hr 11/13/20 11:15 11/13/20 11:50 Normal Saline IV 999 mls/hr .BOLUS KIKO Administration Sodium Chloride 1,000 mls @ 150 mls/hr 11/13/20 12:15 11/13/20 12:30 Normal Saline IV 150 mls/hr ASDIRECTED KIKO Administration Insulin Regular in 0.9 % NACL 100 unit in 100 mls @ 8.618 mls/hr 11/13/20 12:15 11/13/20 12:30 Myxredlin In Ns 100 Unit/100 Ml IV 0.1 units/kg/hr TITRATE KIKO 8.618 mls/hr Administration Protocol 0.1 UNITS/KG/HR Sodium Chloride 10 ml 11/13/20 11:12 11/13/20 11:51 Sodium Chloride 0.9% 10 Ml Syringe FLUSH 10 ml ASDIRECTED PRN Administration Keep Vein Open Discontinued Medications Generic Name Dose Route Start Last Admin Trade Name Narcisa PRN Reason Stop Dose Admin Diphenhydramine HCl 25 mg 11/13/20 11:14 11/13/20 11:50 Diphenhydramine 50 Mg/Ml Sdv IVPUSH 11/13/20 11:15 25 mg ONETIME ONE Administration Insulin Human Regular 10 unit 11/13/20 12:13 11/13/20 12:32 Insulin Regular, Human 100 Units/Ml 3 Ml Vial IV 11/13/20 12:14 10 units ONETIME ONE Administration Ketorolac Tromethamine 15 mg 11/13/20 11:15 11/13/20 11:50 Ketorolac 30 Mg/Ml Sdv IVPUSH 11/13/20 11:16 15 mg ONETIME ONE Administration Metoclopramide HCl 10 mg 11/13/20 11:15 11/13/20 11:50 Metoclopramide 10 Mg/2 Ml Sdv IVPUSH 11/13/20 11:16 10 mg ONETIME ONE Administration - Radiology Interpretation Free Text/Narrative:: [facility] Final Radiology Report Call: [phone] assistance Online chat: [email or web address] Name: MARSHAL MARTINEZ Age: 80Years F Date: 11/13/2020 SSN: -- : [id number] Study: CT HEAD WO CONT Requesting Physician: FLORIN CA Images: [id number] Addl Studies: Provided Clinical History: severe Rt sided headache w/vomiting Contrast: Without Contrast Medium: Contrast Amount: Contrast Method: Page 1 of 2 PROCEDURE INFORMATION: Exam: CT Head Without Contrast Exam date and time: 11/13/2020 11:24 AM Age: 80 years old Clinical indication: Pain; Headache; Additional info: Severe RT sided headache w/vomiting TECHNIQUE: Imaging protocol: Computed tomography of the head without contrast. Radiation optimization: All CT scans at this facility use at least one of these dose optimization techniques: automated exposure control; mA and/or kV adjustment per patient size (includes targeted exams where dose is matched to clinical indication); or iterative reconst ruction. COMPARISON: No relevant prior studies available. FINDINGS: Brain: A mild amount of decreased attenuation is present within the [place] ventricular white matter. Finding is nonspecific but most often seen in chronic small-vessel ischemic change. No acute hemorrhage or infarct identified. There is no intracranial mass, mass effect, midline shift or edema. There are no abnormal extra-axial fluid collections. Cerebral ventricles: The ventricles and sulci are mildly prominent consistent with global volume loss/atrophy. Paranasal sinuses: Visualized sinuses are unremarkable. No fluid levels. Mastoid air cells: Visualized mastoid air cells are well aerated. Bones/joints: Unremarkable. No acute fracture. Soft tissues: Unremarkable. IMPRESSION: Mild atrophy and nonspecific chronic white matter change. No acute intracranial abnormality. MARSHAL MARTINEZ | Final Radiology Report CONFIDENTIALITY STATEMENT This report is intended only for use by the referring physician, and only in accordance with law. If you received this in error, call [phone]. Page 2 of 2 Thank you for allowing us to participate in the care of your patient. Dictated and Authenticated by: Rick Loera MD 11/13/2020 11:44 AM Central Time ([place] & [place]) - Re-Assessments/Exams Free Text/Narrative Re-Assessment/Exam: 11/13/20 13:53 Pt was shocked to find her blood glucose was over 800. With IV insulin drip and IVF hydration over the next couple of hours her sugars came down below 400. Pt declines admission, but agrees to f/u in clinic tomorrow. 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 Follow up in clinic tomorrow for diabetic management, and for a new glucometer. Monitor your blood sugar closely and work on diet and exercise. Return to ER if your blood sugar is over 450. Sepsis Event Note (ED) - Focused Exam Vital Signs: Vital Signs Temp Pulse Resp BP Pulse Ox 11/13/20 11:30 97.9 F 89 20 151/53 H 96 - My Orders Last 24 Hours: My Active Orders 11/13/20 11:12 Sodium Chloride 0.9% [Saline Flush] 10 ml FLUSH ASDIRECTED PRN Peripheral IV Insertion Adult [OM.PC] Stat 11/13/20 11:13 Peripheral IV Care [RC] . DIRECTED 11/13/20 11:15 Sodium Chloride 0.9% [Normal Saline] 500 ml IV .BOLUS 11/13/20 12:15 Insulin Regular in 0.9 % NACL [Myxredlin in NS 100 UNIT/100 ML] 100 unit in 100 ml IV TITRATE Sodium Chloride 0.9% [Normal Saline] 1,000 ml IV ASDIRECTED - Assessment/Plan Last 24 Hours: My Active Orders 11/13/20 11:12 Sodium Chloride 0.9% [Saline Flush] 10 ml FLUSH ASDIRECTED PRN Peripheral IV Insertion Adult [OM.PC] Stat 11/13/20 11:13 Peripheral IV Care [RC] . DIRECTED 11/13/20 11:15 Sodium Chloride 0.9% [Normal Saline] 500 ml IV .BOLUS 11/13/20 12:15 Insulin Regular in 0.9 % NACL [Myxredlin in NS 100 UNIT/100 ML] 100 unit in 100 ml IV TITRATE Sodium Chloride 0.9% [Normal Saline] 1,000 ml IV ASDIRECTED I have read and agree with the documentation that has been completed regarding this visit. By signing this record, I attest that the documentation was comple gus in my physical presence and is an accurate record of the encounter."
== END 2020-11-13 14:30 | disposition home or self-care (01) ==
LOC: DL.ED 11:00
DX: G43.909 Migraine, unspecified, not intractable, without status migrainosus (principal); E11.65 Type 2 diabetes mellitus with hyperglycemia; I10 Essential (primary) hypertension; K21.9 Gastro-esophageal reflux disease without esophagitis; Z88.5 Allergy status to narcotic agent; Z79.899 Other long term (current) drug therapy; Z79.4 Long term (current) use of insulin
CPT/HCPCS: 36415; 70450; 80053; 81001; 82009; 82150; 82947; 83690; 85025; 86140; 96374; 96375; 99284; 99284-25; J1200; J1815-GY; J1885; J2765; J7030; J7040

== ENCOUNTER 2020-11-23 15:26 | Emergency (ER) | payer MEDICARE, MEDICAID ==
[2020-11-23] MEDS ORDERED: Sodium Chloride 0.9% 500 ML IV SCH (16:00)
[2020-11-23] MEDS ORDERED: Sodium Chloride 0.9% 10 ML Syringe FLUSH PRN (16:00)
[2020-11-23] MEDS ORDERED: Sodium Chloride 0.9% 1,000 ML IV ONE (16:16)
[2020-11-23 17:07] LABS: ANION GAP 9.8 mEq/L (7-13); CHLORIDE,CL 101 mmol/L (98-107); SODIUM,NA 135 mmol/L (136-145)
--- NOTE | 2020-11-23 17:48 | CT ---
PROCEDURE INFORMATION: Exam: CT Abdomen And Pelvis Without Contrast Exam date and time: 11/23/2020 5:29 PM Age: 80 years old Clinical indication: Abdominal pain; Localized; Left lower quadrant (llq); Prior surgery; Surgery date: 6+ months; Surgery type: Cholecystectomy, appendectomy, hysterectomy; Additional info: Luq and gen. Lower abdominal pain, wbc 15.2 TECHNIQUE: Imaging protocol: Computed tomography of the abdomen and pelvis without contrast. Radiation optimization: All CT scans at this facility use at least one of these dose optimization techniques: automated exposure control; mA and/or kV adjustment per patient size (includes targeted exams where dose is matched to clinical indication); or iterative reconstruction. COMPARISON: No relevant prior studies available. FINDINGS: Liver: Normal. No mass. Gallbladder and bile ducts: There has been a cholecystectomy. Pancreas: Normal. No ductal dilation. Spleen: Normal. No splenomegaly. Adrenal glands: Normal. No mass. Kidneys and ureters: Normal. No hydronephrosis. Stomach and bowel: Mild diverticular disease in the remainder of the colon. Appendix: No evidence of appendicitis. Intraperitoneal space: There is a segment of acute inflammation in the mid sigmoid colon and adjacent pericolonic fat without evidence of a drainable abscess or free air, consistent with acute diverticulitis. Vasculature: The aortoiliac vessels demonstrate mild atherosclerotic calcification. Lymph nodes: Unremarkable. No enlarged lymph nodes. Urinary bladder: Unremarkable as visualized. Reproductive: There has been a hysterectomy. Bones/joints: Moderate central spinal stenosis L4-L5. Soft tissues: Unremarkable. IMPRESSION: 1. There has been a cholecystectomy. 2. There is a segment of acute inflammation in the mid sigmoid colon and adjacent pericolonic fat without evidence of a drainable abscess or free air, consistent with acute diverticulitis. 3. There has been a hysterectomy.
[2020-11-23] MEDS ORDERED: Piperacillin/Tazobactam 3.375 GM in Sodium Chloride 0.9% 100 ML IV ONE (17:57)
--- NOTE | 2020-11-23 18:29 | EDM.PDOC ---
"Scribed by Naya De Jesus 11/23/20 1611 for Florin Ca MD ED HPI GENERAL MEDICAL PROBLEM - General Chief Complaint: Gastrointestinal Problem Stated Complaint: COLON PAIN Time Seen by Provider: 11/23/20 15:41 Source of Information: Reports: Patient, Old Records, Provider (Arely Pandya), RN, RN Notes Reviewed History Limitations: Reports: No Limitations - History of Present Illness INITIAL COMMENTS - FREE TEXT/NARRATIVE: Patient presents to ED by POV stating that she hurts to the lower abdomen that started yesterday. She sates had a bowel movement before coming here, states looked like had some mucous in it. Patient rates her pain 12/23. States took Tylenol this morning a couple of hours ago. Patient states has history of ulcerative colitis and diverticulosis. Onset Date: 11/22/20 Duration: Getting Worse Location: Reports: Abdomen Quality: Reports: Ache Severity: Moderate Improves with: Reports: None Worsens with: Reports: None Associated Symptoms: Reports: No Other Symptoms Lower Abdomen Pain Score (Numeric/FACES): 7 - Related Data Allergies Allergy/AdvReac Type Severity Reaction Status Date / Time codeine Allergy Abdominal Verified 11/23/20 15:45 Pain Home Meds: Home Meds Escitalopram [Lexapro] 20 mg PO BEDTIME 10/04/20 [History] Folic Acid 1 mg PO DAILY 10/04/20 [History] Insulin Degludec [Tresiba] 32 unit SQ DAILY 10/04/20 [History] Losartan [Cozaar] 50 mg PO DAILY 10/04/20 [History] Potassium Chloride 20 meq PO DAILY 10/04/20 [History] Pramipexole [Mirapex] 0.5 mg PO BID 10/04/20 [History] Semaglutide [Ozempic] 1 mg SQ WEEKLY 10/04/20 [History] metFORMIN HCl [Metformin HCl] 1,000 mg PO BID 10/04/20 [History] predniSONE [Prednisone] 25 mg PO DAILY 10/04/20 [History] risperiDONE [Risperidone] 1.5 mg PO BID 10/04/20 [History] Ferrous Sulfate 325 mg PO DAILY 11/23/20 [History] Past Medical History HEENT History: Reports: None Cardiovascular History: Reports: Heart Murmur, Hypertension, Other (See Below) Other Cardiovascular History: Near syncopal episodes hx Respiratory History: Reports: None Gastrointestinal History: Reports: GERD Genitourinary History: Reports: None AUTOMOTIVE TIRE TESTER History: Reports: Other (See Below) Other AUTOMOTIVE TIRE TESTER History: hysterectomy Musculoskeletal History: Reports: Arthritis, Other (See Below) Other Musculoskeletal History: Myalgia Neurological History: Reports: None Psychiatric History: Reports: None Endocrine/Metabolic History: Reports: Diabetes, Type II Hematologic History: Reports: None Immunologic History: Reports: None Oncologic (Cancer) History: Reports: None Dermatologic History: Reports: None - Infectious Disease History Infectious Disease History: Reports: None - Past Surgical History Head Surgeries/Procedures: Reports: None GI Surgical History: Reports: Cholecystectomy Social & Family History - Family History Family Medical History: No Pertinent Family History - Caffeine Use Caffeine Use: Reports: Tea - Living Situation & Occupation Living situation: Reports: with Family Occupation: Retired ED ROS GENERAL - Review of Systems Review Of Systems: Comprehensive ROS is negative, except as noted in HPI. ED EXAM, GI/ABD - Physical Exam Exam: See Below Exam Limited By: No Limitations General Appearance: Alert, WD/WN, No Apparent Distress, Obese Eyes: Bilateral: Normal Appearance Ears: Normal External Exam, Hearing Grossly Normal Nose: Normal Inspection, No Blood Throat/Mouth: Normal Inspection, Normal Lips, Normal Teeth, Normal Gums, Normal Oropharynx, Normal Voice, No Airway Compromise Head: Atraumatic, Normocephalic Neck: Normal Inspection, Supple, Non-Tender, Full Range of Motion Respiratory/Chest: No Respiratory Distress, Lungs Clear, Normal Breath Sounds, No Accessory Muscle Use, Chest Non-Tender Cardiovascular: Normal Peripheral Pulses, Regular Rate, Rhythm, No Edema GI/Abdominal Exam: Normal Bowel Sounds, Soft, No Distention, Tender (Generalized lower abdominal tenderness, and LUQ). No: Guarding, Rigid, Rebound (Female) Exam: Deferred Rectal (Female) Exam: Deferred Back Exam: Normal Inspection, Full Range of Motion, NT Extremities: Normal Inspection, Normal Range of Motion, Non-Tender, Normal Capillary Refill, No Pedal Edema Neurological: Alert, Oriented, CN II-XII Intact, Normal Cognition, Normal Gait, Normal Reflexes, No Motor/Sensory Deficits Psychiatric: Normal Affect, Normal Mood Skin Exam: Warm, Dry, Intact, Normal Color, No Rash Course - Vital Signs Last Recorded V/S: Last Vital Signs Temp 97.9 F 11/23/20 15:40 Pulse 91 11/23/20 15:40 Resp 18 11/23/20 15:40 BP 145/43 H 11/23/20 15:40 Pulse Ox 98 11/23/20 15:40 - Orders/Labs/Meds Orders: Active Orders 24 hr Category Date Time Status Peripheral IV Care [RC] . DIRECTED Care 11/23/20 16:00 Active UA RFX DINA AND CULT IF INDIC [URIN] Stat Lab 11/23/20 15:59 Ordered Piperacillin/Tazobactam [Zosyn] 3.375 gm Med 11/23/20 17:57 Active Sodium Chloride 0.9% [Normal Saline] 100 ml IV ONETIME Sodium Chloride 0.9% [Saline Flush] Med 11/23/20 16:00 Active 10 ml FLUSH ASDIRECTED PRN Peripheral IV Insertion Adult [OM.PC] Stat Oth 11/23/20 15:59 Ordered Medication Orders Piperacillin Sod/Tazobactam (Sod 3.375 gm/ Sodium Chloride) 100 mls @ 200 mls/hr IV ONETIME ONE Stop: 11/23/20 18:26 Sodium Chloride (Sodium Chloride 0.9% 10 Ml Syringe) 10 ml FLUSH ASDIRECTED PRN PRN Reason: Keep Vein Open Last Admin: 11/23/20 16:09 Dose: 10 ml Documented by: GEETA Labs: Laboratory Tests 11/23/20 11/23/20 11/23/20 Range/Units 14:05 16:32 16:32 WBC 15.2 H (5.0-10.0) 10^3/uL RBC 3.85 L (4.2-5.4) 10^6/uL Hgb 11.1 L (12.0-16.0) g/dL Hct 34.0 L (37.0-47.0) % MCV 88.3 D (80-100) fL MCH 28.8 (27.0-34.0) pg MCHC 32.6 L (33.0-35.0) g/dL Plt Count 317 (150-450) 10^3/uL Neut % (Auto) 75.7 H (42.2-75.2) % Lymph % (Auto) 13.3 L (20.5-50.1) % Josephine % (Auto) 10.0 H (2-8) % Eos % (Auto) 0.9 L (1.0-3.0) % Baso % (Auto) 0.1 (0.0-1.0) % Sodium 135 L D (136-145) mmol/L Potassium 3.8 (3.5-5.1) mmol/L Chloride 101 D (98-107) mmol/L Carbon Dioxide 28 (21-32) mmol/L Anion Gap 9.8 (7-13) mEq/L BUN 21 H (7-18) mg/dL Creatinine 1.10 H (0.55-1.02) mg/dL Est Cr Clr Drug Dosing 33.34 mL/min Estimated GFR (MDRD) 48 BUN/Creatinine Ratio 19.1 (No establ ref range) Glucose 146 H (70-99) mg/dL Lactic Acid 0.7 (0.4-2.0) mmol/L Calcium 7.4 L (8.5-10.1) mg/dL Total Bilirubin 0.5 (0.2-1.0) mg/dL AST 20 (15-37) U/L ALT 29 (14-59) U/L Alkaline Phosphatase 105 (46-116) U/L C-Reactive Protein 13.0 H (0.0-0.9) mg/dL Total Protein 5.9 L (6.4-8.2) g/dL Albumin 2.2 L (3.4-5.0) g/dL Globulin 3.7 Albumin/Globulin Ratio 0.59 Amylase 29 (25-115) U/L Lipase 74 (73-393) U/L Ketones Negative Meds: Medications Generic Name Dose Route Start Last Admin Trade Name Freq PRN Reason Stop Dose Admin Piperacillin Sod/Tazobactam 100 mls @ 200 mls/hr 11/23/20 17:57 Sod 3.375 gm/ Sodium Chloride IV 11/23/20 18:26 ONETIME ONE Sodium Chloride 10 ml 11/23/20 16:00 11/23/20 16:09 Sodium Chloride 0.9% 10 Ml Syringe FLUSH 10 ml ASDIRECTED PRN Administration Keep Vein Open Discontinued Medications Generic Name Dose Route Start Last Admin Trade Name Freq PRN Reason Stop Dose Admin Sodium Chloride 500 mls @ 999 mls/hr 11/23/20 16:00 Normal Saline IV .BOLUS KIKO Sodium Chloride 1,000 mls @ 999 mls/hr 11/23/20 16:16 11/23/20 16:17 Normal Saline IV 11/23/20 17:16 999 mls/hr .BOLUS ONE Administration - Radiology Interpretation Free Text/Narrative:: [facility] [place] [facility] Final [facility] Report Call: [phone] assistance Online chat: [email or web address] Name: MARSHAL MARTINEZ Age: 80Years F Date: 11/23/2020 SSN: -- : [id number] Study: CT ABDOMEN PELVIS WO CONT Requesting Physician: FLORIN CA Images: [id number] Addl Studies: Provided Clinical History: LUQ and gen. lower abdominal pain, WBC 15.2 Contrast: Without Contrast Medium: Contrast Amount: Contrast Method: Page 1 of 2 PROCEDURE INFORMATION: Exam: CT Abdomen And Pelvis Without Contrast Exam date and time: 11/23/2020 5:29 PM Age: 80 years old Clinical indication: Abdominal pain; Localized; Left lower quadrant (llq); Prior surgery; Surgery date: 6+ months; Surgery type: Cholecystectomy, appendectomy, hysterectomy; Additional info: Luq and gen. Lower abdominal pain, wbc 15.2 TECHNIQUE: Imaging protocol: Computed tomography of the abdomen and pelvis without contrast. Radiation optimization: All CT scans at this facility use at least one of these dose optimization techniques: automated exposure control; mA and/or kV adjustment per patient size (includes targeted exams where dose is matched to clinical indication); or iterative reconstruction. COMPARISON: No relevant prior studies available. FINDINGS: Liver: Normal. No mass. Gallbladder and bile ducts: There has been a cholecystectomy. Pancreas: Normal. No ductal dilation. Spleen: Normal. No splenomegaly. Adrenal glands: Normal. No mass. Kidneys and ureters: Normal. No hydronephrosis. Stomach and bowel: Mild diverticular disease in the remainder of the colon. Appendix: No evidence of appendicitis. Intraperitoneal space: There is a segment of acute inflammation in the mid sigmoid colon and adjacent pericolonic fat without evidence of a drainable abscess or free air, consistent with acute diverticulitis. Vasculature: The aortoiliac vessels demonstrate mild atherosclerotic calcification. MARSHAL MARTINEZ | Final Radiology Report CONFIDENTIALITY STATEMENT This report is intended only for use by the referring physician, and only in accordance with law. If you received this in error, call [phone]. Page 2 of 2 Lymph nodes: Unremarkable. No enlarged lymph nodes. Urinary bladder: Unremarkable as visualized. Reproductive: There has been a hysterectomy. Bones/joints: Moderate central spinal stenosis L4-L5. Soft tissues: Unremarkable. IMPRESSION: 1. There has been a cholecystectomy. 2. There is a segment of acute inflammation in the mid sigmoid colon and adjacent pericolonic fat without evidence of a drainable abscess or free air, consistent with acute diverticulitis. 3. There has been a hysterectomy. Thank you for allowing us to participate in the care of your patient. Dictated and Authenticated by: Garry Mesa MD 11/23/2020 5:48 PM Central Time ([place] & [place]) - Re-Assessments/Exams Free Text/Narrative Re-Assessment/Exam: 11/23/20 18:23 Pt's PCP, Arely Pandya, called to inform me that the pt has undiagnosed schizophrenia, and she has concern such that she has filed a vulnerable adult case on the patient. However, the pt did not display any signs of dementia, or psychosis during this ER visit. Her diverticulitis is without perforation or abscess, and she does not meet admission criteria at this time. Departure - Departure Time of Disposition: 19:00 Disposition: Home, Self-Care 01 Condition: Good Clinical Impression: Diverticulitis large intestine w/o perforation or abscess w/o bleeding - Discharge Information *PRESCRIPTION DRUG MONITORING PROGRAM REVIEWED*: Not Applicable *COPY OF PRESCRIPTION DRUG MONITORING REPORT IN PATIENT RHODA: Not Applicable Instructions: Diverticulitis, [id number] Forms: ED Department Discharge Additional Instructions: Rx: Cipro 500mg Rx: Flagyl 500mg Follow up in clinic with Arely Pandya next week for recheck. Return to ER if worse at any time. Sepsis Event Note (ED) - Focused Exam Vital Signs: Vital Signs Temp Pulse Resp BP Pulse Ox 11/23/20 15:40 97.9 F 91 18 145/43 H 98 - My Orders Last 24 Hours: My Active Orders 11/23/20 15:59 UA RFX DINA AND CULT IF INDIC [URIN] Stat Peripheral IV Insertion Adult [OM.PC] Stat 11/23/20 16:00 Peripheral IV Care [RC] . DIRECTED Sodium Chloride 0.9% [Saline Flush] 10 ml FLUSH ASDIRECTED PRN 11/23/20 17:57 Piperacillin/Tazobactam [Zosyn] 3.375 gm Sodium Chloride 0.9% [Normal Saline] 100 ml IV ONETIME - Assessment/Plan Last 24 Hours: My Active Orders 11/23/20 15:59 UA RFX DINA AND CULT IF INDIC [URIN] Stat Peripheral IV Insertion Adult [OM.PC] Stat 11/23/20 16:00 Peripheral IV Care [RC] . DIRECTED Sodium Chloride 0.9% [Saline Flush] 10 ml FLUSH ASDIRECTED PRN 11/23/20 17:57 Piperacillin/Tazobactam [Zosyn] 3.375 gm Sodium Chloride 0.9% [Normal Saline] 100 ml IV ONETIME I have read and agree with the documentation that has been completed regarding this visit. By signing this record, I attest that the documentation was completed in my physical presence and is an accurate record of the encounter."
== END 2020-11-23 19:26 | disposition home or self-care (01) ==
LOC: DL.ED 15:26
DX: K57.32 Diverticulitis of large intestine without perforation or abscess without bleeding (principal); I10 Essential (primary) hypertension; E11.9 Type 2 diabetes mellitus without complications; K21.9 Gastro-esophageal reflux disease without esophagitis; Z88.5 Allergy status to narcotic agent; Z79.4 Long term (current) use of insulin; Z79.899 Other long term (current) drug therapy
CPT/HCPCS: 36415; 74176; 80053; 82009; 82150; 83605; 83690; 85025; 86140; 96365; 99284; 99284-25; J2543; J7030

== ENCOUNTER 2020-11-28 14:37 | Emergency (ER) | payer MEDICARE, MEDICAID ==
--- NOTE | 2020-11-28 15:03 | EDM.PDOC ---
ED HPI GENERAL MEDICAL PROBLEM - General Chief Complaint: Gastrointestinal Problem Stated Complaint: PAIN LOWER COLON, BLACK MUCUS STOOL Time Seen by Provider: 11/28/20 15:02 Source of Information: Reports: Patient, RN, RN Notes Reviewed History Limitations: Reports: No Limitations - History of Present Illness INITIAL COMMENTS - FREE TEXT/NARRATIVE: Patient is a 80-year-old female who presents to ER with her daughter with complaint of left lower quadrant pain that continues. Patient states she does have a history of ulcerative colitis and diverticulitis. Patient was seen on November [address] Ca who prescribed Cipro and Flagyl. Patient had been having mucus stools. Patient states beginning yesterday she has been having dark black mucus stools. Patient states last week she had fever and chills, but has not had any fever or chills since then. Also states she had some nausea and vomiting last week but not this week. Patient states she is on long-term prednisone for the ulcerative colitis. Patient also has a history of diabetes. Onset: Gradual Abdominal Pain Score (Numeric/FACES): 5 - Related Data Allergies Allergy/AdvReac Type Severity Reaction Status Date / Time codeine Allergy Abdominal Verified 11/23/20 15:45 Pain Home Meds: Home Meds Escitalopram [Lexapro] 20 mg PO BEDTIME 10/04/20 [History] Folic Acid 1 mg PO DAILY 10/04/20 [History] Insulin Degludec [Tresiba] 32 unit SQ DAILY 10/04/20 [History] Losartan [Cozaar] 50 mg PO DAILY 10/04/20 [History] Potassium Chloride 20 meq PO DAILY 10/04/20 [History] Pramipexole [Mirapex] 0.5 mg PO BID 10/04/20 [History] Semaglutide [Ozempic] 1 mg SQ WEEKLY 10/04/20 [History] metFORMIN HCl [Metformin HCl] 1,000 mg PO BID 10/04/20 [History] predniSONE [Prednisone] 25 mg PO DAILY 10/04/20 [History] risperiDONE [Risperidone] 1.5 mg PO BID 10/04/20 [History] Ferrous Sulfate 325 mg PO DAILY 11/23/20 [History] Past Medical History HEENT History: Reports: None, Impaired Vision Other HEENT History: wears glasses Cardiovascular History: Reports: Heart Murmur, Hypertension, Other (See Below) Other Cardiovascular History: Near syncopal episodes hx Respiratory History: Reports: None Gastrointestinal History: Reports: Diverticulosis, GERD, Other (See Below) Other Gastrointestinal History: ulcertive colitis Genitourinary History: Reports: None NURSING PROGRAM CHAIR History: Reports: Other (See Below) Other NURSING PROGRAM CHAIR History: hysterectomy Musculoskeletal History: Reports: Arthritis, Other (See Below) Other Musculoskeletal History: Myalgia Neurological History: Reports: None Psychiatric History: Reports: None Endocrine/Metabolic History: Reports: Diabetes, Type II Hematologic History: Reports: None Immunologic History: Reports: None Oncologic (Cancer) History: Reports: None Dermatologic History: Reports: None - Infectious Disease History Infectious Disease History: Reports: None - Past Surgical History Head Surgeries/Procedures: Reports: None GI Surgical History: Reports: Cholecystectomy Social & Family History - Family History Family Medical History: No Pertinent Family History - Tobacco Use Tobacco Use Status *Q: Former Tobacco User Used Tobacco, but Quit: Yes Month/Year Tobacco Last Used: 1999 - Caffeine Use Caffeine Use: Reports: Coffee - Recreational Drug Use Recreational Drug Use: No ED ROS GENERAL - Review of Systems Review Of Systems: Comprehensive ROS is negative, except as noted in HPI. ED EXAM, GI/ABD - Physical Exam Exam: See Below Exam Limited By: No Limitations General Appearance: Alert, WD/WN, No Apparent Distress Eyes: Bilateral: Normal Appearance, EOMI Ears: Normal External Exam, Hearing Grossly Normal Nose: Normal Inspection Throat/Mouth: Normal Inspection, Normal Voice, No Airway Compromise Head: Atraumatic, Normocephalic Neck: Normal Inspection, Supple, Non-Tender, Full Range of Motion Respiratory/Chest: No Respiratory Distress, Lungs Clear, Normal Breath Sounds, No Accessory Muscle Use, Chest Non-Tender Cardiovascular: Normal Peripheral Pulses, No Edema, No Gallop, No JVD, No Murmur, No Rub, Irregularly Irregular GI/Abdominal Exam: Normal Bowel Sounds, Soft, Tender (LLQ) (Female) Exam: Deferred Rectal (Female) Exam: Normal Exam, Hemorrhoids (Internal) Back Exam: Normal Inspection, Full Range of Motion Extremities: Normal Inspection, Normal Range of Motion, Non-Tender, Normal Capillary Refill, No Pedal Edema Neurological: Alert, Oriented, Normal Cognition Psychiatric: Normal Affect, Normal Mood Skin Exam: Warm, Dry, Intact, Normal Color, No Rash Lymphatic: No Adenopathy Course - Vital Signs Last Recorded V/S: Last Vital Signs Temp 97.1 F 11/28/20 14:51 Pulse 92 11/28/20 14:51 Resp 14 11/28/20 14:51 BP 175/61 H 11/28/20 14:51 Pulse Ox 97 11/28/20 14:51 - Orders/Labs/Meds Orders: Active Orders 24 hr Category Date Time Status CULTURE BLOOD [BC] Stat Lab 11/28/20 15:03 Received CULTURE BLOOD [BC] Stat Lab 11/28/20 15:09 Received CULTURE URINE [RM] Stat Lab 11/28/20 15:19 Received Blood Culture x2 Reflex Set [OM.PC] Stat Oth 11/28/20 14:47 Ordered Labs: Laboratory Tests 11/28/20 11/28/20 11/28/20 Range/Units 15:03 15:03 15:03 WBC 11.1 H (5.0-10.0) 10^3/uL RBC 3.42 L (4.2-5.4) 10^6/uL Hgb 9.8 L (12.0-16.0) g/dL Hct 30.4 L (37.0-47.0) % MCV 88.9 (80-100) fL MCH 28.7 (27.0-34.0) pg MCHC 32.2 L (33.0-35.0) g/dL Plt Count 322 (150-450) 10^3/uL Neut % (Auto) 76.3 H (42.2-75.2) % Lymph % (Auto) 13.7 L (20.5-50.1) % [place] % (Auto) 7.8 (2-8) % Eos % (Auto) 2.0 (1.0-3.0) % Baso % (Auto) 0.2 (0.0-1.0) % Sodium 140 (136-145) mmol/L Potassium 4.0 (3.5-5.1) mmol/L Chloride 102 (98-107) mmol/L Carbon Dioxide 28 (21-32) mmol/L Anion Gap 14.0 H (7-13) mEq/L BUN 11 (7-18) mg/dL Creatinine 1.15 H (0.55-1.02) mg/dL Est Cr Clr Drug Dosing 37.74 mL/min Estimated GFR (MDRD) 46 BUN/Creatinine Ratio 9.6 (No establ ref range) Glucose 315 H (70-99) mg/dL Lactic Acid 1.2 (0.4-2.0) mmol/L Calcium 8.2 L (8.5-10.1) mg/dL Total Bilirubin 0.3 (0.2-1.0) mg/dL AST 18 (15-37) U/L ALT 28 (14-59) U/L Alkaline Phosphatase 104 (46-116) U/L C-Reactive Protein 4.6 H (0.0-0.9) mg/dL Total Protein 6.7 (6.4-8.2) g/dL Albumin 2.5 L (3.4-5.0) g/dL Globulin 4.2 Albumin/Globulin Ratio 0.60 Urine Color (YELLOW) Urine Appearance (CLEAR) Urine pH (5.0-9.0) Ur Specific [place] (1.005-1.030) Urine Protein (NEGATIVE) Urine Glucose (UA) (NEGATIVE) Urine Ketones (NEGATIVE) Urine Occult Blood (NEGATIVE) Urine Nitrite (NEGATIVE) Urine Bilirubin (NEGATIVE) Urine Urobilinogen (0.2-1.0) mg/dL Ur Leukocyte Esterase (NEGATIVE) Urine RBC /HPF Urine WBC (0-5/HPF) /HPF Ur Epithelial Cells (NOT SEEN) /HPF Amorphous Sediment (NOT SEEN) /HPF Urine Bacteria (0-FEW/HPF) /HPF Urine Mucus (NOT SEEN) /LPF Urine Yeast (NOT SEEN) /HPF /15/ Range/Units 15:19 WBC (5.0-10.0) 10^3/uL RBC (4.2-5.4) 10^6/uL Hgb (12.0-16.0) g/dL Hct (37.0-47.0) % MCV (80-100) fL MCH (27.0-34.0) pg MCHC (33.0-35.0) g/dL Plt Count (150-450) 10^3/uL Neut % (Auto) (42.2-75.2) % Lymph % (Auto) (20.5-50.1) % [place] % (Auto) (2-8) % Eos % (Auto) (1.0-3.0) % Baso % (Auto) (0.0-1.0) % Sodium (136-145) mmol/L Potassium (3.5-5.1) mmol/L Chloride (98-107) mmol/L Carbon Dioxide (21-32) mmol/L Anion Gap (7-13) mEq/L BUN (7-18) mg/dL Creatinine (0.55-1.02) mg/dL Est Cr Clr Drug Dosing mL/min Estimated GFR (MDRD) BUN/Creatinine Ratio (No establ ref range) Glucose (70-99) mg/dL Lactic Acid (0.4-2.0) mmol/L Calcium (8.5-10.1) mg/dL Total Bilirubin (0.2-1.0) mg/dL AST (15-37) U/L ALT (14-59) U/L Alkaline Phosphatase (46-116) U/L C-Reactive Protein (0.0-0.9) mg/dL Total Protein (6.4-8.2) g/dL Albumin (3.4-5.0) g/dL Globulin Albumin/Globulin Ratio Urine Color Yellow (YELLOW) Urine Appearance Slightly cloudy (CLEAR) Urine pH 5.5 (5.0-9.0) Ur Specific [place] >= 1.030 (1.005-1.030) Urine Protein 100 H (NEGATIVE) Urine Glucose (UA) 500 H (NEGATIVE) Urine Ketones Negative (NEGATIVE) Urine Occult Blood Trace-intact H (NEGATIVE) Urine Nitrite Negative (NEGATIVE) Urine Bilirubin Negative (NEGATIVE) Urine Urobilinogen 0.2 (0.2-1.0) mg/dL Ur Leukocyte Esterase Trace H (NEGATIVE) Urine RBC 0-5 /HPF Urine WBC 5-10 H (0-5/HPF) /HPF Ur Epithelial Cells Occasional (NOT SEEN) /HPF Amorphous Sediment Few (NOT SEEN) /HPF Urine Bacteria Occasional (0-FEW/HPF) /HPF Urine Mucus Occasional (NOT SEEN) /LPF Urine Yeast Rare H (NOT SEEN) /HPF - Re-Assessments/Exams Free Text/Narrative Re-Assessment/Exam: 11/28/20 16:26 Discussed patient case with her primary care provider, Arely Pandya. Related labs and findings to her. Her PCP states she will follow up with her this week to recheck labs. Patient encouraged to return to ER with any worsening of problems. Departure - Departure Time of Disposition: 16:29 Disposition: Home, Self-Care 01 Condition: Fair Clinical Impression: Diverticulitis - Discharge Information *PRESCRIPTION DRUG MONITORING PROGRAM REVIEWED*: No *COPY OF PRESCRIPTION DRUG MONITORING REPORT IN PATIENT RHODA: No Instructions: Diverticulitis, [id number] Forms: ED Department Discharge Additional Instructions: Follow-up with Arely Pandya this week, call tomorrow morning to make an appointment Return to ER with any worsening of problems, judd red blood in the stool, increased pain Drink plenty of water Finish medications as prescribed Sepsis Event Note (ED) - Evaluation Sepsis Screening Result: No Definite Risk - Focused Exam Vital Signs: Vital Signs Temp Pulse Resp BP Pulse Ox 11/28/20 14:51 97.1 F 92 14 175/61 H 97 - My Orders Last 24 Hours: My Active Orders 11/28/20 14:47 Blood Culture x2 Reflex Set [OM.PC] Stat 11/28/20 15:03 CULTURE BLOOD [BC] Stat 11/28/20 15:09 CULTURE BLOOD [BC] Stat 11/28/20 15:19 CULTURE URINE [RM] Stat - Assessment/Plan Last 24 Hours: My Active Orders 11/28/20 14:47 Blood Culture x2 Reflex Set [OM.PC] Stat 11/28/20 15:03 CULTURE BLOOD [BC] Stat 11/28/20 15:09 CULTURE BLOOD [BC] Stat 11/28/20 15:19 CULTURE URINE [RM] Stat
== END 2020-11-28 16:36 | disposition home or self-care (01) ==
LOC: DL.ED 14:37
DX: K57.32 Diverticulitis of large intestine without perforation or abscess without bleeding (principal); E11.9 Type 2 diabetes mellitus without complications; I10 Essential (primary) hypertension; K21.9 Gastro-esophageal reflux disease without esophagitis; Z79.4 Long term (current) use of insulin; Z79.899 Other long term (current) drug therapy; Z87.891 Personal history of nicotine dependence; Z88.5 Allergy status to narcotic agent
CPT/HCPCS: 36415; 80053; 81001; 82272; 83605; 85025; 86140; 87040; 87086; 99283; 99284

== ENCOUNTER → 2020-12-12 | Day surgery (SDC) | payer MEDICARE, MEDICAID ==
[~2020-12-12] MED LIST: Dextrose 5%-0.45% NaCl 1,000 ML IV SCH; Midazolam 1 MG/ML 2 ML SDV IV ONE; Midazolam 1 MG/ML 2 ML SDV ONE; Sodium Chloride 0.9% 10 ML Syringe FLUSH PRN; fentaNYL 100 MCG/2 ML SDV IV ONE; fentaNYL 100 MCG/2 ML SDV ONE
--- NOTE | 2020-12-12 08:40 | OR ---
DATE: 12/12/2020 PROCEDURES: Total colonoscopy and multiple pinch biopsies. INSTRUMENT USED: PCF-H190DL Olympus video colonoscope. PREMEDICATIONS: Fentanyl 100 mcg intravenous, Versed 2.5 mg intravenous, nasal O2 cannula. The procedure was done under pulse oximetry, BP recording, and desk monitor. INDICATIONS: The patient with recent left-sided lower abdominal pain, and chronic intermittent diarrhea, diabetic, on multiple medications. Colonoscopic examination is done for detection of any polypoid lesions and removal, biopsies to be obtained for any evidence of microscopic colitis, endoscopic hemostasis therapy if needed. DESCRIPTION OF PROCEDURE: Initial rectal exam was unremarkable. Rigid anoscopy was normal. The colonoscope was passed with ease. Numerous wide-mouthed diverticula were noted in the distal left colon along with significant deformity. The scope was passed with ease up to the ileocecal area. Photographs were taken of the normal-appearing cecum identified by double-bulged ileocecal folds. No bleeding was noted from any of the visualized areas at the commencement of the examination. Bowel preparation was found to be adequate, [place] scale 3 in right and transverse colon, 2 in left colon, total score 8. No stricture. No vascular ectasia. No large isolated ulcerations seen. No evidence of diffuse inflammatory bowel disease in the form of friability, contact bleeding, or ulcerations. No polyp or tumor mass identified. Probing the proximal sides of folds and flexures using adequate distention and clearing up the stool material, withdrawal of the scope was made. Multiple pinch biopsies were taken from the normal-appearing mucosa of the mid transverse colon, mid descending colon, and rectosigmoid, and sent for any histopathologic evidence of microscopic colitis. No bleeding was noted from any of the visualized areas at the completion of examination. IMPRESSION: Diverticulosis. The patient tolerated the procedure well. [facility] /[id number]
--- NOTE | 2020-12-12 15:23 | LETTER ---
12/12/[address] [facility] RE: MICHELLEMARYCARMENKASEY ANN : 1940 Dear Ms. Pandya: Kasey Ann Michelle had colonoscopic examination done this morning, and she tolerated the procedure well. I herewith send a copy of the endoscopy note and photographs for your review. Thank you. Sincerely, [facility] /[id number]
== END | disposition home or self-care (01) ==
LOC: DL.ENDO 04:55
PROVIDERS: ATTEND Internal Medicine Gastroenterology
DX: K57.30 Diverticulosis of large intestine without perforation or abscess without bleeding (principal); K52.9 Noninfective gastroenteritis and colitis, unspecified; E11.9 Type 2 diabetes mellitus without complications; E66.01 Morbid (severe) obesity due to excess calories; E55.9 Vitamin D deficiency, unspecified; I25.10 Atherosclerotic heart disease of native coronary artery without angina pectoris; J44.9 Chronic obstructive pulmonary disease, unspecified; E78.5 Hyperlipidemia, unspecified; K21.9 Gastro-esophageal reflux disease without esophagitis; D50.9 Iron deficiency anemia, unspecified; Z90.49 Acquired absence of other specified parts of digestive tract; Z87.891 Personal history of nicotine dependence; Z68.37 Body mass index [BMI] 37.0-37.9, adult
CPT/HCPCS: 45380; 88305; J2250; J3010; J7042

== ENCOUNTER 2021-09-10 13:39 | Emergency (ER) | payer MEDICARE, MEDICAID ==
[2021-09-10] MEDS ORDERED: Losartan 50 MG Tab PO ONE (14:24)
[2021-09-10 15:15] LABS: ANION GAP 12.9 mEq/L (7-13); CHLORIDE,CL 100 mmol/L (98-107); SODIUM,NA 138 mmol/L (136-145)
[2021-09-10] MEDS ORDERED: Acetaminophen 500 MG Tab PO ONE (15:51)
[2021-09-10 16:19] LABS: AMPHETAMINES,URINE NEGATIVE (NEGATIVE); BARBITURATES,URINE NEGATIVE (NEGATIVE); BENZODIAZEPINE,URINE NEGATIVE (NEGATIVE); MDMA (ECSTASY), URINE NEGATIVE (NEGATIVE); METHADONE,URINE NEGATIVE (NEGATIVE); METHAMPHETAMINES,URINE NEGATIVE (NEGATIVE); OPIATES,URINE NEGATIVE (NEGATIVE); OXYCODONE,URINE NEGATIVE (NEGATIVE); PHENCYCLIDINE,URINE NEGATIVE (NEGATIVE); TCA,URINE NEGATIVE (NEGATIVE)
== END 2021-09-10 16:24 | disposition home or self-care (01) ==
LOC: DL.ED 13:39
DX: S60.212A Contusion of left wrist, initial encounter (principal); M25.561 Pain in right knee; E11.65 Type 2 diabetes mellitus with hyperglycemia; E11.9 Type 2 diabetes mellitus without complications; K21.9 Gastro-esophageal reflux disease without esophagitis; Z91.018 Allergy to other foods; Z88.5 Allergy status to narcotic agent; Z91.041 Radiographic dye allergy status; Z88.8 Allergy status to other drugs, medicaments and biological substances; Z79.4 Long term (current) use of insulin; Z79.899 Other long term (current) drug therapy; W18.30XA Fall on same level, unspecified, initial encounter; Y92.480 Sidewalk as the place of occurrence of the external cause
CPT/HCPCS: 36415; 70450; 72125; 73110-LT; 73562-RT; 80053; 80305-QW; 81001; 83605; 85025; 86140; 99284-25; A9270-GY